=== PATIENT | male | born 1955 | race Caucasian/White ===

== ENCOUNTER 2017-08-06 12:46 | Emergency (ER) | payer BC ==
[2017-08-06] MEDS ORDERED: METHYLPREDNISOLONE 125 MG INJ ONE (13:43)
[2017-08-06] MEDS ORDERED: DIPHENHYDRAMINE 50 MG/ML VIAL ONE (13:44)
[2017-08-06] MEDS ORDERED: NA CHLORIDE 0.9% 1,000 ML ONE (13:44)
[2017-08-06] MEDS ORDERED: FAMOTIDINE 20 MG/2 ML VIAL IV ONE (13:44)
--- NOTE | 2017-08-06 15:09 | EDPHYS ---
Physician Documentation [facility] Name: Shubham Beck Age: 61 yrs Sex: Male : 1955 Arrival Date: 08/06/2017 Time: 12:49 Bed 20 Private MD: Thai Munroe ED Physician Vasquez Alvarez HPI: 08/06 13:25 This 61 yrs old Male presents to ER via Ambulatory with complaints of Bee kav Sting. 13:25 Onset: The symptoms/episode began/occurred acutely, just prior to arrival. The patient kav has experienced similar episodes in the past, several times. The patient has not recently seen a physician. Patient presents with c/o wasp sting LUE. LUE is swollen and erythematic .Denies sob.. 13:27 The patient presents with localized swelling, RAJI. Associated signs and symptoms: kav Pertinent positives: The patient has no apparent associated signs or symptoms. swelling, Pertinent negatives: chest pain, fever, headache, hives, Light headed nausea, shortness of breath. Possible causes: wasp. At home the patient or guardian has treated the symptoms with nothing. Severity of symptoms: At their worst the symptoms were moderate just prior to arrival. Historical: - Allergies: 12:57 Wasps; aj - Home Meds: 12:57 Lexapro Oral [Active]; losartan oral oral [Active]; Protonix Oral [Active]; aj - PMHx: 12:57 Hypertension; Hyperlipidemia; - PSHx: 12:57 Left leg surgery; aj - Immunization history:: Adult Immunizations up to date. - Social history:: Smoking status: unknown. - Family history:: not pertinent. - Ebola Screening: : No symptoms or risks identified at this time. - Hospitalizations: : No recent hospitalization is reported. ROS: 13:27 Constitutional: Negative for fever, chills, and weight loss, Eyes: Negative for injury, kav pain, redness, and discharge, ENT: Negative for injury, pain, and discharge, Neck: Negative for injury, pain, and swelling, Cardiovascular: Negative for chest pain, palpitations, and edema, Respiratory: Negative for shortness of breath, cough, wheezing, and pleuritic chest pain, Abdomen/GI: Negative for abdominal pain, nausea, vomiting, diarrhea, and constipation, Back: Negative for injury and pain, : Negative for injury, bleeding, discharge, and swelling, MS/Extremity: Negative for injury and deformity, Neuro: Negative for headache, weakness, numbness, tingling, and seizure, Psych: Negative for depression, anxiety, suicide ideation, homicidal ideation, and hallucinations, Allergy/Immunology: Negative for hives, rash, and allergies, Endocrine: Negative for neck swelling, polydipsia, polyuria, polyphagia, and marked weight changes, Hematologic/Lymphatic: Negative for swollen nodes, abnormal bleeding, and unusual bruising. 13:27 Skin: Positive for erythema, swelling, of the left tricep, Negative for cellulitis. Exam: 13:27 Constitutional: This is a well developed, well nourished patient who is awake, alert, kav and in no acute distress. Head/Face: Normocephalic, atraumatic. Eyes: Pupils equal round and reactive to light, extra-ocular motions intact. Lids and lashes normal. Conjunctiva and sclera are non-icteric and not injected. Cornea within normal limits. Periorbital areas with no swelling, redness, or edema. ENT: Nares patent. No nasal discharge, no septal abnormalities noted. Tympanic membranes are normal and external auditory canals are clear. Oropharynx with no redness, swelling, or masses, exudates, or evidence of obstruction, uvula midline. Mucous membranes moist. Neck: Trachea midline, no thyromegaly or masses palpated, and no cervical lymphadenopathy. Supple, full range of motion without nuchal rigidity, or vertebral point tenderness. No Meningismus. Chest/axilla: Normal chest wall appearance and motion. Nontender with no deformity. No lesions are appreciated. Cardiovascular: Regular rate and rhythm with a normal S1 and S2. No gallops, murmurs, or rubs. Normal PMI, no JVD. No pulse deficits. Respiratory: Lungs have equal breath sounds bilaterally, clear to auscultation and percussion. No rales, rhonchi or wheezes noted. No increased work of breathing, no retractions or nasal flaring. Abdomen/GI: Soft, non-tender, with normal bowel sounds. No distension or tympany. No guarding or rebound. No evidence of tenderness throughout. Back: No spinal tenderness. No costovertebral tenderness. Full range of motion. MS/ Extremity: Pulses equal, no cyanosis. Neurovascular intact. Full, normal range of motion. Neuro: Awake and alert, GCS 15, oriented to person, place, time, and situation. Cranial nerves II-XII grossly intact. Motor strength 5/5 in all extremities. Sensory grossly intact. Cerebellar exam normal. Normal gait. Psych: Awake, alert, with orientation to person, place and time. Behavior, mood, and affect are within normal limits. 13:27 Skin: swelling lue. Vital Signs: 12:57 BP 143 / 91; Pulse 104; Resp 17; Temp 98.8; Pulse Ox 97% on R/A; Weight 102.06 kg; aj Height 6 ft. 1 in. (185.42 cm); 15:21 BP 132 / 86; Pulse 95; Resp 16; Pulse Ox 97% ; jl7 12:57 Body Mass Index 29.68 (102.06 kg, 185.42 cm) aj MDM: 13:00 Medical screening is not applicable. kav Administered Medications: 13:44 Drug: NS 0.9% 1000 ml Route: IV; Rate: 1 bolus; Site: right antecubital; jl7 14:45 Follow up: IV Status: Completed infusion jl7 13:45 Drug: Benadryl 50 mg Route: IVP; Site: right antecubital; jl7 14:00 Follow up: Response: No adverse reaction jl7 13:47 Drug: SOLU-Medrol 125 mg Route: IVP; Site: right antecubital; jl7 14:00 Follow up: Response: No adverse reaction jl7 13:51 Drug: Pepcid 20 mg Route: IVP; Site: right antecubital; jl7 14:00 Follow up: Response: No adverse reaction [facility] Disposition: 08/07 06:37 Co-signature as Attending Physician, Vasquez Alvarez MD I agree with the assessment and cornel plan of care. Disposition: 08/06/17 15:08 Discharged to Home. Impression: Toxic effect of venom of wasps, accidental (unintentional). - Condition is Stable. - Discharge Instructions: Bee, Wasp, or Hornet Sting. - Prescriptions for Bactrim DS 800- 160 mg Oral Tablet - take 1 tablet by ORAL route every 12 hours for 3 days; 6 tablet. - Medication Reconciliation Form, Thank You Letter, Antibiotic Education, Prescription Opioid Use form. - Follow up: Thai Munroe MD; When: 1 - 2 days; Reason: If symptoms return, Recheck today's complaints, Continuance of care, Re-evaluation by your physician. - Problem is new. - Symptoms have improved. Signatures: Deborah Olvera, RN RN Vasquez Pedro MD MD cha Vern, Katherine, GALLERY OR MUSEUM TECHNICIAN GALLERY OR MUSEUM TECHNICIAN Efraín Murcia, RN RN jl7 Corrections: (The following items were deleted from the chart) 08/06 15:24 15:08 08/06/2017 15:08 Discharged to Home. Impression: Toxic effect of venom of wasps, jl7 accidental (unintentional). Condition is Stable. Forms are Medication Reconciliation Form, Thank You Letter, Antibiotic Education, Prescription Opioid Use. Follow up: Thai Munroe; When: 1 - 2 days; Reason: If symptoms return, Recheck today's complaints, Continuance of care, Re-evaluation by your physician. Problem is new. Symptoms have improved. kamana
--- NOTE | 2017-08-06 15:09 | ER ---
Nurse's Notes [facility] Name: Shubham Beck Age: 61 yrs Sex: Male : 1955 Arrival Date: 08/06/2017 Time: 12:49 Bed 20 Private MD: Thai Munroe Diagnosis: Toxic effect of venom of wasps, accidental (unintentional) Presentation: 08/06 12:56 Presenting complaint: Patient states: Reports pain and swelling to left upper arm after aj wasp sting yesterday. Transition of care: patient was not received from another setting of care. Onset: The symptoms/episode began/occurred yesterday. Anaphylaxis evaluation, no signs or symptoms of anaphylaxis were noted. Onset of symptoms was August 05, 2017. Risk Assessment: Do you want to hurt yourself or someone else? Patient reports no desire to harm self or others. Initial Sepsis Screen: Does the patient meet any 2 criteria? No. Patient's initial sepsis screen is negative. Does the patient have a suspected source of infection? No. Patient's initial sepsis screen is negative. Care prior to arrival: None. 12:56 Method Of Arrival: Ambulatory 12:56 Acuity: LALY 4 Triage Assessment: 12:57 General: Appears in no apparent distress. comfortable, Behavior is calm, cooperative, aj appropriate for age. Pain: Complains of pain in left bicep. Neuro: Level of Consciousness is awake, alert, obeys commands, Oriented to person, place, time, situation, Appropriate for age. Respiratory: Airway is patent Respiratory effort is even, unlabored, Respiratory pattern is regular, symmetrical. Derm: Skin is intact, is healthy with good turgor, Skin is pink, warm \T\ dry. normal. Historical: - Allergies: 12:57 Wasps; aj - Home Meds: 12:57 Lexapro Oral [Active]; losartan oral oral [Active]; Protonix Oral [Active]; aj - PMHx: 12:57 Hypertension; Hyperlipidemia; aj - PSHx: 12:57 Left leg surgery; aj - Immunization history:: Adult Immunizations up to date. - Social history:: Smoking status: unknown. - Family history:: not pertinent. - Ebola Screening: : No symptoms or risks identified at this time. - Hospitalizations: : No recent hospitalization is reported. Screenin:04 Abuse screen: Denies threats or abuse. Denies injuries from another. Nutritional jl7 screening: No deficits noted. Tuberculosis screening: No symptoms or risk factors identified. Fall Risk None identified. Assessment: 13:04 General: Appears in no apparent distress. uncomfortable, Behavior is calm, cooperative, jl7 appropriate for age. Pain: Complains of pain in left arm Pain does not radiate. Pain currently is 6 out of 10 on a pain scale. Quality of pain is described as throbbing, Pain began 1 day ago. Is continuous. Neuro: Level of Consciousness is awake, alert, obeys commands, Oriented to person, place, time, situation. Cardiovascular: Patient's skin is warm and dry. Respiratory: Airway is patent Respiratory effort is even, unlabored, Respiratory pattern is regular, symmetrical, Breath sounds are clear bilaterally. GI: No signs and/or symptoms were reported involving the gastrointestinal system. : No signs and/or symptoms were reported regarding the genitourinary system. EENT: No signs and/or symptoms were reported regarding the EENT system. Derm: Skin is pink, warm \T\ dry. Musculoskeletal: Swelling present in left tricep and left elbow. 14:00 Reassessment: Patient and/or family updated on plan of care and expected duration. Pain jl7 level reassessed. Patient is alert, oriented x 3, equal unlabored respirations, skin warm/dry/pink. 15:00 Reassessment: Patient and/or family updated on plan of care and expected duration. Pain jl7 level reassessed. Patient is alert, oriented x 3, equal unlabored respirations, skin warm/dry/pink. Patient states feeling better. Patient states symptoms have improved. Vital Signs: 12:57 BP 143 / 91; Pulse 104; Resp 17; Temp 98.8; Pulse Ox 97% on R/A; Weight 102.06 kg; aj Height 6 ft. 1 in. (185.42 cm); 15:21 BP 132 / 86; Pulse 95; Resp 16; Pulse Ox 97% ; jl7 12:57 Body Mass Index 29.68 (102.06 kg, 185.42 cm) aj ED Course: 12:49 Patient arrived in ED. mr 12:49 Thai Munroe MD is Private Physician. mr 12:57 Triage completed. aj 12:57 Arm band placed on right wrist. Patient placed in waiting room. aj 13:00 Efraín Mcbride, ARMANDO is Primary Nurse. jl7 13:00 Prema Ambriz FNP is [facility]. ka 13:00 Vasquez Alvarez MD is Attending Physician. kav 13:04 Patient has correct armband on for positive identification. Bed in low position. Call jl7 light in reach. Side rails up X 1. Pulse ox on. NIBP on. 13:45 Inserted saline lock: 22 gauge in right antecubital area, using aseptic technique. jl7 15:07 Thai Munroe MD is Referral Physician. kav 15:23 No provider procedures requiring assistance completed. jl7 15:23 IV discontinued, intact, bleeding controlled, No redness/swelling at site. Pressure jl7 dressing applied. Administered Medications: 13:44 Drug: NS 0.9% 1000 ml Route: IV; Rate: 1 bolus; Site: right antecubital; jl7 14:45 Follow up: IV Status: Completed infusion jl7 13:45 Drug: Benadryl 50 mg Route: IVP; Site: right antecubital; jl7 14:00 Follow up: Response: No adverse reaction jl7 13:47 Drug: SOLU-Medrol 125 mg Route: IVP; Site: right antecubital; jl7 14:00 Follow up: Response: No adverse reaction jl7 13:51 Drug: Pepcid 20 mg Route: IVP; Site: right antecubital; jl7 14:00 Follow up: Response: No adverse reaction jl7 Outcome: 15:08 Discharge ordered by . kav 15:23 Discharged to home ambulatory. jl7 15:23 Condition: stable 15:23 Discharge instructions given to patient, Instructed on discharge instructions, follow up and referral plans. medication usage, Demonstrated understanding of instructions, follow-up care, medications, Prescriptions given X 1. 15:24 Patient left the ED. jl7 Signatures: Deborah Olvera, RN Prema James FNP FNP kav Rivera, Maria mr Efraín Mcbride, RN RN jl7
[2017-08-06 15:28] VITALS: TEMP 98.8; O2SAT 97
[2017-08-06 15:29] VITALS: BP 132/86
== END 2017-08-06 15:24 | disposition home or self-care (01) ==
LOC: ER 12:46
DX: T63.441A Toxic effect of venom of bees, accidental (unintentional), initial encounter (principal); M79.89 Other specified soft tissue disorders; Y92.019 Unspecified place in single-family (private) house as the place of occurrence of the external cause; Z91.030 Bee allergy status; I10 Essential (primary) hypertension; E78.5 Hyperlipidemia, unspecified
CPT/HCPCS: 96361; 96374; 96375; 99284; J2930; J7030